=== PATIENT | male | born 1970 | race Hispanic/Latino ===

== ENCOUNTER 2019-07-05 13:59 | Emergency (ER) | payer BC, SELFPAY ==
--- NOTE | ~2019-07-05 | XR_ITS ---
EXAMINATION: XR chest 2V DATE: 07/05/2019 15:43 INDICATION: Nauseated. Doesn't feel well . Weakness, constipation and confusion. TECHNIQUE: PA and lateral views of the chest were obtained. COMPARISON: None FINDINGS: The lungs are clear with no focal airspace opacities, pulmonary edema, pleural effusion or pneumothor ax. The cardiomediastinal silhouette is normal. Mild thoracic spondylosis. IMPRESSION: 1. No acute cardiopulmonary disease. Reviewed, dictated and finalized at location A. S MANAGER
[2019-07-05 14:10] VITALS: BP 107/66; PULSE 81; RESP 18; TEMP 36.3; O2SAT 100
--- NOTE | 2019-07-05 14:37 | ED.GENADULT ---
HPI - General Adult General Chief complaint: Unspecified Stated complaint: multiple issues Time Seen by Provider: 07/05/19 14:29 Source: patient, family and RN notes reviewed Mode of arrival: ambulatory Limitations: no limitations History of Present Illness HPI narrative: A 49 y/o male presents to the ED with constant generalized weakness for 3.5 months. He states on March 20 he was in [place], because they live down there for 6 months a year, when he developed a severe ARREDONDO, went to the ED, and was admitted to hospital for 4 days with a BS of 590. When he was d/c he had some damaged to his third cranial nerve causing some facial and eye paralysis which resolved after a couple weeks. The pt reports that ever since he has been having generalized weakness, fatigued, had a loss of appetite, nausea, and body aches. Per states that the pt has been acting more confused and has not been the same man since . She notes that the pt has already seen a neurologist, PCP, and an ENT, and has been placed on multiple medications, including 3 days of Cipro, but denies anything alleviating his symptoms.. The pt reports that he has lost roughly 30lbs since March and that he has developed back and calf pain. He denies any vomiting or ABD pain. MD complaint: Generalized weakness Onset (ago): month(s) (3.5) Pain Consistency: constant Relieving factors: none Associated symptoms: confusion, loss of appetite, nausea/vomiting (no vomiting) and other (fatigue, body aches, and has lost roughly 30lbs) Treatments prior to arrival: other (multiple medications) Related Data Allergies Allergy/AdvReac Type Severity Reaction Status Date / Time No Known Allergies Allergy Verified 07/05/19 16:31 Review of Systems Review of Systems: All systems reviewed & are unremarkable except as noted in HPI and below Constitutional: Constitutional: Reports body ache(s), Reports fatigue, Reports poor appetite, Reports weakness (generalized) and Reports weight loss (30lbs) Gastrointestinal: Gastrointestinal: Denies abdominal pain, Reports nausea and Denies vomiting Neurologic: Reports confusion PMFSH Past Medical History Medical History (Updated 07/05/19 @ 17:32 by Nirmal Aleman MD) DM (diabetes mellitus) Medical history unknown Surgical History Surgical History (Updated 07/05/19 @ 15:21 by Nelson Frey) Surgical history unknown Social History Social History (Updated 07/05/19 @ 15:21 by Nelson Frey) Smoking status: Unknown if ever smoked Exam Narrative: Exam Narrative: GENERAL: Well-appearing, well-nourished, and in no acute distress. HEAD: Normocephalic, atraumatic. ENT: Mucous membranes moist. CHEST: Clear to auscultation. No respiratory distress. HEART: Regular rate and rhythm. Normal peripheral pulses. ABDOMEN: Soft, nontender, nondistended. EXTREMITIES: Normal range of motion. No edema. SKIN: Warm, dry, no rash. NEURO: Alert and oriented x3. PSYCH: Normal mood and affect. Course Course Emergency Course: Patient has paperwork that shows he is positive for due to 2 different types of typhoid and one type of paratyphoid. We will add on blood cultures. Dr. Noyola requests additional treatment with ciprofloxacin which I do not think is unreasonable. Pt and family informed of dx and tx plan. Consultations Consultation #1: Discussed case with Dr. Tam (Infectious Disease). States that the 3 days of Cipro should of treated the typhoid. But suggests still getting a blood culture for salmonella and if it comes back positive, they will see him in office, so he needs to be set up with a PCP. Date: 07/05/19 Time: 15:27 Consultation #2: Discussed case with Date: 07/05/19 Time: 16:12 Vital Signs Vital signs: Vital Signs Temperature 97.4 F L 07/05/19 14:10 Pulse Rate 81 07/05/19 14:10 Respiratory Rate 18 07/05/19 14:10 Blood Pressure 107/66 07/05/19 14:10 Pulse Oximetry 100 07/05/19 14:10 Temperature 97.4 F L 07/05/19 14:
[2019-07-05 14:43] LABS: Glucose Point of Care 89 (65-105)
[2019-07-05 15:00] VITALS: RESP 20
--- NOTE | 2019-07-05 15:13 | ECG_ITS ---
Measurements Intervals [place] Rate: 72 P: 8 MO: 156 QRS: 10 QRSD: 96 T: -16 QT: 420 QTc: 460 Interpretive Statements SINUS RHYTHM EARLY PRECORDIAL R/S TRANSITION ST-T WAVE ABNORMALITY IN ANTERIOR LEADS- CONSIDER ISCHEMIA ABNORMAL ECG Electronically Signed On 07-05-2019 16:41:57 [employer] by Sha Aaron D.O.
[2019-07-05 15:32] LABS: Basophils Percent Auto 0.8 % (0.2-1.2); Eosinophils Absolute Auto 0.1 K/mm3 (0-0.3); Eosinophils Percent Auto 2.7 % (0-4.4); Hematocrit 34.9 % (42.0-52.0); Hemoglobin 11.7 g/dL (14.0-18.0); Immature Granulocyte Absolute 0.01 K/mm3 (0.00-0.031); Immature Granulocyte Percent A 0.2 % (0-0.5); Lymphocytes Absolute Auto 2.23 K/mm3 (0.9-3.2); Mean Corpuscular HGB Conc 33.5 g/dl (32-36); Mean Corpuscular Hemoglobin 28.4 pg (26-34); Mean Corpuscular Volume 84.7 fl (80-100); Mean Platelet Volume 8.7 fl (7.4-10.4); Monocytes Absolute Auto 0.4 K/mm3 (0.1-0.6); Monocytes Percent Auto 8.5 % (2.6-8.5); Neutrophils Percent Auto 41.8 % (45.5-73.1); Platelet Count Result 197 k/mm3 (150-375); Red Blood Count 4.12 M/mm3 (4.6-6.20); White Blood Count 4.9 K/mm3 (4.5-10.0)
[2019-07-05 15:40] LABS: Blood Urea Nitrogen 14 mg/dL (9-20); Calcium 9.3 mg/dL (8.4-10.2); Carbon Dioxide 24 mmol/L (22-30); Chloride 100 mmol/L (98-107); Estimated CRCL calculation 98 ml/min; Estimated Glomerular Filt Rate > 60; Glucose 90 mg/dL (75-110); Potassium 4.2 mmol/L (3.4-5.0); Sodium 137 mmol/L (137-145)
[2019-07-05 16:31] VITALS: BP 104/61; PULSE 74; RESP 18; O2SAT 100
[2019-07-05 16:37] LABS: Hemoglobin A1C 5.8 % (<5.7)
[2019-07-05 17:11] LABS: Thyroid Stimulating Hormone Reflex < 0.015 uIU/mL (0.465-4.68)
[2019-07-05 17:40] LABS: Free T4 Free Thyroxine Reflex 1.53 ng/dL (0.78-2.19)
[2019-07-05 17:52] VITALS: BP 98/66; PULSE 73; RESP 17; O2SAT 100
[2019-07-05 18:19] LABS: Total Triiodothyronine (T3) 1.79 NG/ML (0.97-1.69)
== END 2019-07-05 17:53 | disposition home or self-care (01) ==
PROVIDERS: Emergency Provider Emergency Medicine
DX: A01.00 Typhoid fever, unspecified (principal); A01 Typhoid and paratyphoid fevers; E11.9 Type 2 diabetes mellitus without complications
CPT/HCPCS: 36415; 71046; 80048; 82948; 83036; 84439; 84443; 84480; 85025; 87040; 87804; 93005; 99283

== ENCOUNTER 2019-08-10 14:02 | Outpatient (CLI) | payer BC, SELFPAY ==
[2019-08-10 14:21] LABS: Basophils Percent Auto 0.5 % (0.2-1.2); Eosinophils Absolute Auto 0.2 K/mm3 (0-0.3); Eosinophils Percent Auto 3.4 % (0-4.4); Hematocrit 32.9 % (42.0-52.0); Immature Granulocyte Absolute 0.01 K/mm3 (0.00-0.031); Immature Granulocyte Percent A 0.2 % (0-0.5); Immature Reticulocyte Fraction 8.6 % (3.0-15.9); Lymphocytes Absolute Auto 2.94 K/mm3 (0.9-3.2); Lymphocytes Percent Auto 49.3 % (18.3-44.2); Mean Corpuscular HGB Conc 33.4 g/dl (32-36); Mean Corpuscular Hemoglobin 28.2 pg (26-34); Mean Corpuscular Volume 84.4 fl (80-100); Mean Platelet Volume 8.9 fl (7.4-10.4); Monocytes Absolute Auto 0.6 K/mm3 (0.1-0.6); Monocytes Percent Auto 9.6 % (2.6-8.5); Neutrophils Absolute Auto 2.2 K/mm3 (1.3-6.7); Platelet Count Result 169 k/mm3 (150-375); Red Cell Distribution Width 11.9 % (11.5-14.5); Reticulocyte Hemoglobin Conten 31.6 pg (28.2-35.7); Reticulocyte Percent 1.48 % (0.7-4.3); Reticulocytes Absolute 0.06 B/L (32.2-175.7)
[2019-08-10 16:48] LABS: Alanine Aminotransferase 22 U/L (4-50); Albumin Level 3.8 g/dL (3.5-5.1); Alkaline Phosphatase 60 U/L (38-126); Aspartate Amino Transferase 30 U/L (17-59); Bilirubin,Total 0.4 mg/dL (0.2-1.3); Blood Urea Nitrogen 20 mg/dL (9-20); Calcium 10.2 mg/dL (8.4-10.2); Carbon Dioxide 27 mmol/L (22-30); Chloride 103 mmol/L (98-107); Creatine Kinase 39 U/L (55-170); Estimated Glomerular Filt Rate > 60; Glucose 116 mg/dL (75-110); Lactate Dehydrogenase 306 U/L (313-618); Potassium 4.4 mmol/L (3.4-5.0); Sodium 139 mmol/L (137-145)
[2019-08-10 16:50] LABS: Iron 74 ug/dL (49-181)
[2019-08-10 16:59] LABS: Percent Iron Saturation 28 % (20-50)
[2019-08-10 17:03] LABS: Erythrocyte Sedimentation Rate 36 mm/hr (0-20)
[2019-08-10 17:35] LABS: Vitamin B12 > 1000.0 pg/mL (239-931)
== END 2019-08-10 14:03 | disposition home or self-care (01) ==
LOC: ANHLAB 14:03
PROVIDERS: Visit Provider Internal Medicine Hematology & Oncology
DX: D64.9 Anemia, unspecified (principal); R63.4 Abnormal weight loss
CPT/HCPCS: 36415; 80053; 82550; 82607; 82728; 83540; 83550; 83615; 85025; 85046; 85652; 86140

== ENCOUNTER 2019-08-23 08:58 | Day surgery (SDC) | payer BC, SELFPAY ==
[2019-08-22 17:23] VITALS: BMI 21.5
--- NOTE | ~2019-08-23 | BM_ITS ---
EXAMINATION: CCL bone marrow asp w bx diag DATE: 08/23/2019 10:53 INDICATION: Anemia presenting with fatigue and muscle weakness. TECHNIQUE: A time-out was performed to verify the patient's name, date of , and procedure to b e performed. The procedure including the risks, benefits, and alternatives was discussed with the pat ient. Risks discussed included bleeding and infection. The patient understood the risks and agreed to proceed. The skin overlying the right posterior iliac spine was prepped and draped in usual sterile fashion. Anesthetic was administered with 1% lidocaine subcutaneously. Systemic analgesia was provide d with 50 mcg fentanyl IV. An 11 gauge needle was inserted into the ilium with fluoroscopic guidance. Bone marrow was aspirated. An 8 gauge needle was then inserted into the ilium with fluoroscopic guid ance. A core bone marrow biopsy was obtained. There were no immediate complications. Fluoroscopy expo sure time was 0.1 minutes. The total number of images was 9. FINDINGS: Real-time fluoroscopy demonstrates a marker overlying the right posterior iliac spine poste rior iliac spine. IMPRESSION: 1. Successful fluoro-guided bone marrow aspiration. 2. Successful fluoro-guided bone marrow core biopsy. Reviewed, dictated and finalized at location A.
[2019-08-23 09:21] LABS: Hematocrit 36.9 % (42.0-52.0); Hemoglobin 12.3 g/dL (14.0-18.0); Mean Corpuscular HGB Conc 33.3 g/dl (32-36); Mean Corpuscular Volume 84.1 fl (80-100); Mean Platelet Volume 8.8 fl (7.4-10.4); Platelet Count Result 189 k/mm3 (150-375); Red Blood Count 4.39 M/mm3 (4.6-6.20); Red Cell Distribution Width 12.4 % (11.5-14.5); White Blood Count 7.1 K/mm3 (4.5-10.0)
[2019-08-23 09:30] LABS: INR 0.9; Prothrombin Time 11.9 Seconds (11.1-14.7)
[2019-08-23 10:00] VITALS: BP 129/80; PULSE 68; RESP 16; TEMP 37.2; O2SAT 100; BMI 21.2
[2019-08-23 11:00] VITALS: BP 112/71; PULSE 68; RESP 12; O2SAT 100
[2019-08-23 11:15] VITALS: BP 104/71; PULSE 70; RESP 15; O2SAT 98
[2019-08-23 11:30] VITALS: BP 99/74; PULSE 70; RESP 12; O2SAT 99
[2019-08-23 11:45] VITALS: BP 114/66; PULSE 62; RESP 17; O2SAT 98
== END 2019-08-23 12:05 | disposition home or self-care (01) ==
PROVIDERS: Visit Provider Radiology Diagnostic Radiology
DX: D64.9 Anemia, unspecified (principal); M62.81 Muscle weakness (generalized); R53.83 Other fatigue
CPT/HCPCS: 36415; 38222; 85027; 85610; 88305; 88311; 88313; J3010; J7040